=== PATIENT | male | born 1995 | race Two or more races ===

== ENCOUNTER 2023-02-20 08:10 | Outpatient (CLI) | payer OTHER | END 2023-02-20 08:12 | disposition home or self-care (01) | LOC: LAB 08:10 | DX: Z11.3 Encounter for screening for infections with a predominantly sexual mode of transmission (principal); E55.9 Vitamin D deficiency, unspecified; E78.5 Hyperlipidemia, unspecified; N39.0 Urinary tract infection, site not specified; E11.9 Type 2 diabetes mellitus without complications; D64.9 Anemia, unspecified; R19.5 Other fecal abnormalities; Z12.5 Encounter for screening for malignant neoplasm of prostate; M06.9 Rheumatoid arthritis, unspecified ==